=== PATIENT | male | born 1990 | race Caucasian/White ===

== ENCOUNTER 2017-07-30 15:03 | Emergency (ER) | payer BC | END 2017-07-30 15:41 | disposition home or self-care (01) | LOC: ER 15:03 | DX: L23.7 Allergic contact dermatitis due to plants, except food (principal); F12.10 Cannabis abuse, uncomplicated | CPT/HCPCS: 99283 ==

== ENCOUNTER 2018-01-16 11:48 | Emergency (ER) | payer BC ==
[~2018-01-16] VITALS: Ht 190.5 cm; Wt 89.8 kg
[~2018-01-16 11:48] MED LIST: DIPH25CA58 PO; FAMO20TA5 PO; PRED-220 PO; TRIA15OI TP
[2018-01-16] MEDS ORDERED: IV NORMAL SALINE 1000ML BAG 1,000 ML IV SCH (12:35)
--- NOTE | 2018-01-16 12:42 | PHYS DOC ---
Past Medical History Past Medical History: Kidney Stone Past Surgical History: No Surgical History Alcohol Use: Rarely Drug Use: Marijuana Adult General Chief Complaint Chief Complaint: FLANK PAIN HPI HPI Patient is a 27-year-old male who presents with complaint of left-sided groin pain as well as pain into his left lower back that started a couple of days ago. Patient thought that maybe it was caused because he does a lot of heavy lifting at work. He states that this morning, he had intercourse with his girlfriend and noticed that he had a bloody ejaculate and afterwards he states that his urine was very bloody. He does indicate that he has a history of kidney stones and pain is similar to when he had had a kidney stone but he states that it is not as severe as that time. He rates pain at about a 5-6 out of 10. He denies any nausea, vomiting or diaphoresis. Patient states that nothing seems to worsen or improve the pain. Review of Systems Review of Systems Constitutional: Denies fever or chills [] Respiratory: Denies cough or shortness of breath [] Cardiovascular: Denies chest pain[] GI: Complains of left groin/left lower abdominal discomfort[] : Complains of hematuria and bloody ejaculate[] Musculoskeletal: Complains of left lower back pain[] I All other systems were reviewed and found to be within normal limits, except as documented in this note. Current Medications Current Medications Current Medications Medications (Trade) Dose Ordered Sig/Bean Start Time Stop Time Status Last Admin Dose Admin Ketorolac Tromethamine (Toradol 30mg Vial) 30 mg 1X ONCE 01/16/18 12:45 01/16/18 12:46 DC 01/16/18 13:19 30 MG Ondansetron HCl (Zofran) 4 mg 1X ONCE 01/16/18 12:45 01/16/18 12:46 DC 01/16/18 13:20 4 MG Sodium Chloride 1,000 ml @ 1,000 mls/hr Q1H 01/16/18 12:35 01/16/18 13:34 DC 01/16/18 13:19 1,000 MLS/HR Allergies Allergies Allergies Coded Allergies Type Severity Reaction Last Updated Verified No Known Drug Allergies 10/26/14 No Physical Exam Physical Exam Constitutional: Well developed, well nourished, no acute distress, non-toxic appearance. [] HENT: Normocephalic, atraumatic, bilateral external ears normal, oropharynx moist, no oral exudates, nose normal. [] Eyes: PERRLA, EOMI, conjunctiva normal, no discharge. [] Neck: Normal range of motion, no tenderness, supple, no stridor. [] Cardiovascular:Heart rate regular rhythm, no murmur [] Lungs & Thorax: Bilateral breath sounds clear to auscultation [] Abdomen: Bowel sounds normal, soft, with mild left lower abdominal tenderness. [ ] Skin: Warm, dry, no erythema, no rash. [] Extremities: No tenderness, no cyanosis, no clubbing, ROM intact, no edema. [] Neurologic: Alert and oriented X 3, normal motor function, normal sensory function, no focal deficits noted. [] : Testicular exam demonstrates no tenderness or testicular mass. [] Current Patient Data Vital Signs Vital Signs Date Time Temp Pulse Resp B/P (MAP) Pulse Ox O2 Delivery O2 Flow Rate FiO2 01/16/18 11:50 99.0 69 16 126/69 (88) 98 Room Air 99.0 Lab Values Laboratory Tests Test 01/16/18 11:50 01/16/18 12:15 Urine Collection Type Unknown Urine Color Yellow Urine Clarity Clear Urine pH 6.0 Urine Specific [place] 1.025 Urine Protein Negative mg/dL (NEG-TRACE) Urine Glucose (UA) Negative mg/dL (NEG) Urine Ketones (Stick) Negative mg/dL (NEG) Urine Blood Trace (NEG) Urine Nitrite Negative (NEG) Urine Bilirubin Negative (NEG) Urine Urobilinogen Dipstick 0.2 mg/dL (0.2 mg/dL) Urine Leukocyte Esterase Small (NEG) Urine RBC 3-5 /HPF (0-2) Urine WBC 11-20 /HPF (0-4) Urine Squamous Epithelial Cells None /LPF Urine Bacteria Few /HPF (0-FEW) White Blood Count 5.6 x10^3/uL (4.0-11.0) Red Blood Count 5.21 x10^6/uL (4.30-5.70) Hemoglobin 15.8 g/dL (13.0-17.5) Hematocrit 45.1 % (39.0-53.0) Mean Corpuscular Volume 87 fL (79-100) Mean Corpuscular Hemoglobin 30 pg (25-35) Mean Corpuscular Hemoglobin Concent 35 g/dL (31-37) Red Cell Distribution Width 13.5 % (11.5-14.5) Platelet Count 256 x10^3/uL (140-400) Neutrophils (%) (Auto) 58 % (31-73) Lymphocytes (%) (Auto) 27 % (24-48) Monocytes (%) (Auto) 10 % (0-9) H Eosinophils (%) (Auto) 5 % (0-3) H Basophils (%) (Auto) 1 % (0-3) Neutrophils # (Auto) 3.2 x10^3uL (1.8-7.7) Lymphocytes # (Auto) 1.5 x10^3/uL (1.0-4.8) Monocytes # (Auto) 0.5 x10^3/uL (0.0-1.1) Eosinophils # (Auto) 0.3 x10^3/uL (0.0-0.7) Basophils # (Auto) 0.0 x10^3/uL (0.0-0.2) Sodium Level 140 mmol/L (136-145) Potassium Level 4.1 mmol/L (3.5-5.1) Chloride Level 102 mmol/L (98-107) Carbon Dioxide Level 28 mmol/L (21-32) Anion Gap 10 (6-14) Blood Urea Nitrogen 19 mg/dL (8-26) Creatinine 0.9 mg/dL (0.7-1.3) Estimated GFR (Cockcroft-Gault) 100.5 BUN/Creatinine Ratio 21 (6-20) H Glucose Level 79 mg/dL (70-99) Calcium Level 9.3 mg/dL (8.5-10.1) Total Bilirubin 0.5 mg/dL (0.2-1.0) Aspartate Amino Transferase (AST) 23 U/L (15-37) Alanine Aminotransferase (ALT) 30 U/L (16-63) Alkaline Phosphatase 86 U/L (46-116) Total Protein 8.0 g/dL (6.4-8.2) Albumin 4.2 g/dL (3.4-5.0) Albumin/Globulin Ratio 1.1 (1.0-1.7) Laboratory Tests 01/16/18 12:15 Laboratory Tests 8/22/18 12:15 EKG EKG [] Radiology/Procedures Radiology/Procedures [] Impressions: CT of the abdomen and pelvis demonstrates no acute abnormalities. Ultrasound of the scrotum demonstrates no acute process. Course & Med Decision Making Course & Med Decision Making Pertinent Labs and Imaging studies reviewed. (See chart for details) [] Dragon Disclaimer Dragon Disclaimer This electronic medical record was generated, in whole or in part, using a voice recognition dictation system. Departure Departure Impression: Primary Impression: UTI (urinary tract infection) Disposition: HOME, SELF-CARE Condition: STABLE Referrals: NO PCP (PCP) Patient Instructions: Urinary Tract Infection Additional Instructions: Take prescribed medication as directed and follow-up with your primary care provider in the next week. Scripts Ciprofloxacin Hcl (CIPRO) 500 Mg Tablet 1 TAB PO BID, #20 TAB Prov: DONNA HOBSON Jr. DO 01/16/18 Problem Qualifiers Primary Impression: UTI (urinary tract infection) Urinary tract infection type: site unspecified Hematuria presence: with hematuria Qualified Codes: N39.0 - Urinary tract infection, site not specified ; R31.9 - Hematuria, unspecified DONNA HOBSON Jr. DO Jan 16, 2018 12:42
[2018-01-16] MEDS ORDERED: ONDANSETRON PF 4 MG/2 ML VIAL. IV ONE (12:45)
[2018-01-16] MEDS ORDERED: KETOROLAC 30 MG/ML VIAL. IV ONE (12:45)
[2018-01-16 12:52] LABS: BASO % 1 % (0-3); EOS # 0.3 x10^3/uL (0.0-0.7); EOS % 5 % (0-3); HEMATOCRIT 45.1 % (39.0-53.0); HEMOGLOBIN 15.8 g/dL (13.0-17.5); LYMPH # 1.5 x10^3/uL (1.0-4.8); LYMPH % 27 % (24-48); MEAN CORPUSCULAR HEMOGLOBIN 30 pg (25-35); MEAN CORPUSCULAR HGB CONC 35 g/dL (31-37); MEAN CORPUSCULAR VOLUME 87 fL (79-100); MONO # 0.5 x10^3/uL (0.0-1.1); MONO % 10 % (0-9); NEUT # 3.2 x10^3uL (1.8-7.7); NEUT % 58 % (31-73); PLATELET COUNT 256 x10^3/uL (140-400); RED BLOOD COUNT 5.21 x10^6/uL (4.30-5.70); RED CELL DISTRIBUTION WIDTH 13.5 % (11.5-14.5); WHITE BLOOD COUNT 5.6 x10^3/uL (4.0-11.0)
[2018-01-16 12:53] LABS: BILIRUBIN,URINE NEGATIVE (NEG); CLARITY,URINE CLEAR; COLOR,URINE YELLOW; NITRITE,URINE NEGATIVE (NEG); PROTEIN,URINE NEGATIVE (NEG-TRACE); UROBILINOGEN,URINE 0.2 mg/dL (0.2 mg/dL)
[2018-01-16 12:58] LABS: CALCIUM 9.3 mg/dL (8.5-10.1); CREATININE 0.9 mg/dL (0.7-1.3); GFR 100.5; POTASSIUM 4.1 mmol/L (3.5-5.1)
[2018-01-16 13:04] LABS: ALBUMIN 4.2 g/dL (3.4-5.0); ALBUMIN/GLOBULIN RATIO 1.1 (1.0-1.7); TOTAL BILIRUBIN 0.5 mg/dL (0.2-1.0)
[2018-01-16 13:05] LABS: BACTERIA,URINE FEW /HPF (0-FEW)
--- NOTE | 2018-01-16 13:56 | RAD ---
EXAM: Scrotal sonogram. HISTORY: Bleeding with ejaculation. Left groin pain. TECHNIQUE: Castaneda scale and color Doppler sonographic imaging of the scrotum and left inguinal canal with spectral waveform analysis was performed. COMPARISON: None. FINDINGS: The right testis measures 5.1 x 2.2 x 3.0 cm. The left testis measures 5.0 x 2.1 x 3.1 cm. There is normal symmetric blood flow within both testes. No focal testicular parenchymal lesion is seen. The epididymides are unremarkable. There is no varicocele or hydrocele. No inguinal hernia is seen. IMPRESSION: Unremarkable scrotal and left inguinal sonogram. Electronically signed by: Cary Carcamo MD (01/16/2018 1:53 PM) [place] [id number]
[2018-01-16 15:32] VITALS: BP 135/84
--- NOTE | 2018-01-16 15:33 | RAD ---
EXAM: Abdomen and pelvis CT without intravenous contrast. HISTORY: Left flank and left lower quadrant pain. TECHNIQUE: Computed tomographic images of the abdomen and pelvis were obtained without contrast. Multiplanar reformatting was performed. *One or more of the following individualized dose reduction techniques were utilized for this examination: 1. Automated exposure control. 2. Adjustment of the mA and/or kV according to patient size. 3. Use of iterative reconstruction technique. COMPARISON: None. FINDINGS: Evaluation of the lower thorax is unremarkable. No hepatic lesion is seen. The gallbladder, pancreas, spleen, adrenal glands and stomach are unremarkable. There is no evidence of obstructive uropathy. There may be a punctate nontracking stone within the left kidney, best seen on coronal images. The left renal collecting system appears partially duplicated. The urinary bladder is unremarkable. There is slight stranding surrounding the appendix. However, the appendix is normal in caliber and there is no appendiceal wall thickening to suggest appendicitis. There is no bowel obstruction. There is no lymphadenopathy. There is degenerative endplate remodeling with disc space narrowing, Schmorl's node formation and facet arthropathy at L4-L5 and L5-S1. There is associated foraminal stenosis at these levels. IMPRESSION: 1. No acute abdominal or pelvic finding. 2. Possible punctate nonobstructing left renal stone. This is gas seen on coronal image #50. Electronically signed by: Cary Carcamo MD (01/16/2018 3:30 PM) [facility]
[2018-01-16] MEDS ORDERED: CIPR500T94 PO (15:46)
== END 2018-01-16 15:55 | disposition home or self-care (01) ==
LOC: ER 11:48
DX: N39.0 Urinary tract infection, site not specified (principal); R31.9 Hematuria, unspecified; Z87.442 Personal history of urinary calculi
CPT/HCPCS: 36415; 74176; 76870; 80053; 81001; 85025; 87086; 96374; 96375; 99285; J1885; J2405; J7030

== ENCOUNTER 2018-07-28 23:47 | Inpatient (IN) | payer BC ==
[~2018-07-28 23:47] MED LIST changes: +CIPR500T94 PO
[2018-07-29] MEDS ORDERED: IV NORMAL SALINE 1000ML BAG 1,000 ML IV SCH (01:00)
[2018-07-29] MEDS ORDERED: HYDROmorphone 2 MG/ML VIAL IV PRN (01:00)
--- NOTE | 2018-07-29 04:23 | NUR ---
Received report from Telma MADRIGAL at [facility] ED. Patient arrived to unit at 2350 by himself via [facility]. Patient has complaint of back pain radiating down his right leg. Pain rating is a 9 out of 10. Prior to patient arriving at [facility] it was brought to our attention that the MRI machine not working. After contacting Chayo, Nurse Practitioner for Dr. Burton and making her aware of the situation she instructed that the patient be sent to another facility. After consulting Dr. Esteves he agreed with Chayo's recommendation to send patient to [facility]. I then contacted [facility] at 0000 and spoke to Nate, donation specialist to start the transfer process. At 0150 Nate contacted me to inform me that the patient would be admitted to [facility] Room [id number] under the care of Dr. Ifeoma Gregg, a neurosurgeon with [facility]. Report was then called to [place] at [phone] at 0205. At the same time [facility] was contacted for the transfer. At 0220 the patient left the facility en route to [facility] under the care of DEBBIE. The patients vital signs were Temp 98.8, BP 115/61, 94% Spa02 reading on room air with a HR of 52. Patient was stable upon leaving the facility
--- NOTE | 2018-08-07 13:54 | PDOC3 ---
Discharge Summary Date of Admission: Jul 29, 2018 Date of Discharge: Jul 29, 2018 Follow-Up: 1-2 days Admitting Diagnosis comment: LEFT OR TRANSFERRED, PRIOR TO MY VISIT Brief Hospital Course Mr. Kaplan is a 28 old [sex] who presented with [ ] CONDITION AT DISCHARGE: Comment Discharge Medications Current Medications Sodium Chloride 1,000 ml @ 125 mls/hr Q8H IV ; Start 07/29/18 at 01:00; Stop 07/29/18 at 05:34; Status DC Hydromorphone HCl (Dilaudid) 1.5 mg PRN Q3HRS PRN IV SEVERE PAIN Last administered on 07/29/18at 01:31; Start 07/29/18 at 01:00; Stop 07/29/18 at 05:34; Status DC Active Scripts Active Cipro (Ciprofloxacin Hcl) 500 Mg Tablet 1 Tab PO BID Prednisone (Prednisone) 10 Mg Tablet 10 Mg PO UD Take 3 tablets by mouth twice a day for 3 days, then take 2 tablets by mouth twice a day for 3 days, then take 1 tablet by mouth twice a day for 3 days, then take 1 tablet by mouth daily x 3 days, then stop. Triamcinolone Acetonide 0.1% Oint (Triamcinolone Acetonide) 15 Gm Oint...g. 1 [place] TP BID Famotidine 20 Mg Tablet 20 Mg PO DAILY Benadryl (Diphenhydramine Hcl) 25 Mg Capsule 1 Cap PO Q4HRS W/A PRN Allergies Allergies Coded Allergies Type Severity Reaction Last Updated Verified No Known Drug Allergies 10/26/14 No Disposition/Orders: D/C to Home Patient Instructions D/C PLANNING 25 MIN KAMALJIT CHARLTON MD Aug 07, 2018 13:54
--- NOTE | 2018-08-08 13:12 | PDOC3 ---
Discharge Summary Date of Admission: Jul 29, 2018 Date of Discharge: Jul 29, 2018 Follow-Up: 1-2 days Admitting Diagnosis comment: DISCHARGE DIAGNOSIS this patient was admitted with low back pain and urinary retention c/w cauda equina syndrome transferred to [facility] FOR MRI L/S STAT, NOT SEEN BY ME ON ADMIT Brief Hospital Course Mr. Kaplan is a 28 old [sex] who presented with [ ] Discharge Medications Current Medications Sodium Chloride 1,000 ml @ 125 mls/hr Q8H IV ; Start 07/29/18 at 01:00; Stop 07/29/18 at 05:34; Status DC Hydromorphone HCl (Dilaudid) 1.5 mg PRN Q3HRS PRN IV SEVERE PAIN Last administered on 07/29/18at 01:31; Start 07/29/18 at 01:00; Stop 07/29/18 at 05:34; Status DC Active Scripts Active Cipro (Ciprofloxacin Hcl) 500 Mg Tablet 1 Tab PO BID Prednisone (Prednisone) 10 Mg Tablet 10 Mg PO UD Take 3 tablets by mouth twice a day for 3 days, then take 2 tablets by mouth twice a day for 3 days, then take 1 tablet by mouth twice a day for 3 days, then take 1 tablet by mouth daily x 3 days, then stop. Triamcinolone Acetonide 0.1% Oint (Triamcinolone Acetonide) 15 Gm Oint...g. 1 [place] TP BID Famotidine 20 Mg Tablet 20 Mg PO DAILY Benadryl (Diphenhydramine Hcl) 25 Mg Capsule 1 Cap PO Q4HRS W/A PRN Allergies Allergies Coded Allergies Type Severity Reaction Last Updated Verified No Known Drug Allergies 10/26/14 No Disposition/Orders: Other (EMERGENT TRANSFER TO [facility] FOR STAT MRI L/S AND NEUROSURGERY CONSULT) KAMALJIT CHARLTON MD Aug 08, 2018 13:12
== END 2018-07-29 02:28 | disposition short-term general hospital (02) | DRG 74 ==
LOC: 4 NORTH 23:47
PROVIDERS: ADMIT Family Medicine; ATTEND Family Medicine
DX: G83.4 Cauda equina syndrome (principal)
CPT/HCPCS: J1170

== ENCOUNTER 2020-03-23 15:46 | Emergency (ER) | payer BC ==
[~2020-03-23] VITALS: Ht 190.5 cm; Wt 105.0 kg
[2020-03-23 16:40] VITALS: BP 129/78
[2020-03-23] MEDS ORDERED: HYDR-3164 PO (17:26)
[2020-03-23] MEDS ORDERED: METH4TAB2 PO (17:26)
[2020-03-23] MEDS ORDERED: ORPH100T PO (17:26)
--- NOTE | 2020-03-23 17:27 | PHYS DOC ---
Past Medical History Past Medical History: Kidney Stone (MANUEL GALAN APRN) Past Surgical History: No Surgical History (MANUEL GALAN SENIOR PROCUREMENT MANAGER) Smoking Status: Current Every Day Smoker Alcohol Use: Rarely Drug Use: Marijuana (MANUEL GALAN SENIOR PROCUREMENT MANAGER) General Adult EDM: Chief Complaint: LOWER BACK PAIN OR INJURY HPI: HPI: Patient is a 29 year old male who presents with ongoing bilateral lower back pain that radiates down the back of bilateral lower legs sharp and shooting. He states he has a bulging disc. He states that his primary care physician put him on a anti-inflammatory but he cannot remember the name of it. He states that helped for a little while but he needs a more permanent solution. He states that because of Covid he called the physician talked to him over the phone they never actually see him. Patient would like a new primary care physician. 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 Patient currently rates his pain 8 out of 10. He states this more so when he stands up or tries to bend over that he is in pain. He denies any numbness or tingling or loss of bowel and bladder. (MANUEL GALAN SENIOR PROCUREMENT MANAGER) Review of Systems: Review of Systems: Constitutional: Denies fever or chills. [] Eyes: Denies change in visual acuity. [] HENT: Denies nasal congestion or sore throat. [] Respiratory: Denies cough or shortness of breath. [] Cardiovascular: Denies chest pain or edema. [] GI: Denies abdominal pain, nausea, vomiting, bloody stools or diarrhea. [] : Denies dysuria. [] Musculoskeletal: + Bilateral back pain with sharp shooting pain down bilateral lower legs or denies joint pain. [] Integument: Denies rash. [] Neurologic: Denies headache, focal weakness or sensory changes. [] Endocrine: Denies polyuria or polydipsia. [] Lymphatic: Denies swollen glands. [] Psychiatric: Denies depression or anxiety. [] (MANUEL GALAN SENIOR PROCUREMENT MANAGER) Heart Score: Risk Factors: Risk Factors: DM, Current or recent (<one month) smoker, HTN, HLP, family history of CAD, obesity. Risk Scores: Score 0 - 3: 2.5% MACE over next 6 weeks - Discharge Home Score 4 - 6: 20.3% MACE over next 6 weeks - Admit for Clinical Observation Score 7 - 10: 72.7% MACE over next 6 weeks - Early Invasive Strategies (MANUEL GALAN APRN) Allergies: Allergies: Allergies Coded Allergies Type Severity Reaction Last Updated Verified No Known Drug Allergies 10/26/14 No (MANUEL GALAN APRN) Physical Exam: PE: Constitutional: Well developed, well nourished, no acute distress, non-toxic appearance. [] HENT: Normocephalic, atraumatic, bilateral external ears normal, oropharynx moist, no oral exudates, nose normal. [] Eyes: PERRLA, EOMI, conjunctiva normal, no discharge. [] Neck: Normal range of motion, no tenderness, supple, no stridor. [] Cardiovascular:Heart rate regular rhythm, no murmur [] Lungs & Thorax: Bilateral breath sounds clear to auscultation [] Abdomen: Bowel sounds normal, soft, no tenderness, no masses, no pulsatile masses. [] Skin: Warm, dry, no erythema, no rash. [] Back: No tenderness, no CVA tenderness. [] Extremities: No tenderness, no cyanosis, no clubbing, ROM intact, no edema. [] Neurologic: Alert and oriented X 3, normal motor function, normal sensory function, no focal deficits noted. [] Psychologic: Affect normal, judgement normal, mood normal. Normal physical exam [] (MANUEL GALAN APRN) EKG: EKG: [] (MANUEL GALAN APRN) Radiology/Procedures: Radiology/Procedures: [] ([facility] APRN) Course & Med Decision Making: Course & Med Decision Making Pertinent Labs and Imaging studies reviewed. (See chart for details) See HPI. Alert and oriented x4. Speaks in full complete sentences. Ambulatory to steady gait. No focal weaknesses. No focal bony spinal tenderness. No extremity swelling. Skin pink warm and dry. Patient is told to follow-up with a primary care physician. I have referred him to a new primary care clinic. We discussed needing physical therapy for the sciatica and his back pain. Patient is open to this. Patient sent home with orphenadrine, Medrol Dosepak and [place]. Patient is already on an anti-inflammatory at home. [] (MANUEL GALAN APRN) Dragon Disclaimer: Dragon Disclaimer: This electronic medical record was generated, in whole or in part, using a voice recognition dictation system. (MANUEL GALAN APRN) Departure Departure Impression: Primary Impression: Sciatica Qualified Codes: M54.31 - Sciatica, right side Disposition: 01 DC HOME SELF CARE/HOMELESS Condition: STABLE Referrals: NO PCP (PCP) Patient Instructions: Sciatica with [facility] Additional Instructions: Follow-up with a primary care physician as soon as possible. Take medication as prescribed. Try the kcvz-mab-ohsycab patches with lidocaine for aggravated nerves. Scripts Orphenadrine Citrate (ORPHENADRINE CITRATE) 100 Mg Tablet.er 1 TAB PO BID, #14 TAB Prov: MANUEL GALAN APRN 03/23/20 Methylprednisolone (MEDROL) 4 Mg Tab.ds.pk 1 PKG PO UD, #1 PKG Prov: MANUEL GALAN APRN 03/23/20 Hydrocodone/Apap 5-325 (NORCO 5-325 TABLET) 1 Each Tablet 1 TAB PO PRN Q6HRS PRN for PAIN, #10 TAB 0 Refills Prov: MANUEL GALAN APRN 03/23/20 Attending Signature Attending Signature I have reviewed the PA/SKIDDER LEVER OPERATOR's note and plan of care. I was available for consultation as needed during the patient's visit in the emergency department. I agree with the clinical impression, plan, and disposition. (ROBERTH KIM DO) MANUEL GALAN APRN Mar 23, 2020 17:26 ROBERTH KIM DO Mar 23, 2020 18:47
== END 2020-03-23 17:42 | disposition home or self-care (01) ==
LOC: ER 15:46
DX: M54.41 Lumbago with sciatica, right side (principal); F17.200 Nicotine dependence, unspecified, uncomplicated; Z87.442 Personal history of urinary calculi
CPT/HCPCS: 99283